=== PATIENT | male | born 1990 | race Caucasian/White ===

== ENCOUNTER → 2020-11-15 11:14 | Outpatient (CLI) | payer OTHER, SELFPAY ==
[2020-11-15 13:15] LABS: COVID19 -Nasal RAPID Negative (Negative)
== END ==
PROVIDERS: Visit Provider Physician Assistant
DX: Z20.822 Contact with and (suspected) exposure to COVID-19 (principal)
CPT/HCPCS: 87635

== ENCOUNTER → 2020-11-17 15:13 | Outpatient (CLI) | payer OTHER, SELFPAY ==
--- NOTE | 2020-11-17 | DI.NM.S_ITS ---
PROCEDURE: NM EXERCISE TREADMILL NON NUC COMPARISON: None. INDICATIONS: Chest pain, unspecified FINDINGS: the patient exercised for 11 minutes and 56 seconds reaching 2.8 METs (NICOL +13% on active scale). Target heart rate reached (101% of max predicted heart rate reached). Appropriate BP response to exercise. No angina with exercise. No ST changes and no ectopy with exercise. IMPRESSION: Low risk, normal treadmill ECG only stress test 1) No ECG evidence of ischemia. 2) No angina during the study. 3) Average exercise tolerance (12.8 METs, NICOL +13%). Target heart rate achieved. Appropriate BP response to exercise. 4) No prior stress test available for comparison. Dictated by: Arthur Abarca MD on 11/17/2020 at 17:03 Approved by: Arthur Abarca MD on 11/17/2020 at 17:05
--- NOTE | 2020-11-17 15:54 | PM.TREADMILL ---
Cardiac Stress Test Report Referral & Results Date Patient Seen: 11/17/20 Time Patient Seen: 15:54 Requesting provider: Yudy Oneil Indication: chest pain Rest ECG: sinus rhythm Procedure Note: Standard Matias protocol, 11:56, 12.6 METS Reduced exercise capacity, NICOL +13% Normal hemodynamic response to exercise No chest pain or anginal symptoms No ST changes at peak exercise No ectopy Impression: Normal exercise stress test Please note: Actual ECG tracings can be found in the PACS system.
== END ==
PROVIDERS: PCP Physician Assistant Medical; Referring Provider Physician Assistant Medical; Visit Provider Physician Assistant Medical
DX: R07.9 Chest pain, unspecified (principal)
CPT/HCPCS: 93017